=== PATIENT | female | born 1955 | race Caucasian/White ===

== ENCOUNTER → 2016-10-26 | Outpatient (CLI) | payer OTHER ==
[2016-06-03 11:35] VITALS: BP 122/67
[~2016-10-26] MED LIST: ANAS1TAB3 PO; ASPI81TA44 PO; ATOR20TA58 PO; CONTRAST GIVEN MC PRN; DOCU-27 PO; FLUT12AE2 IH; FURO-69 PO; IOHEXOL 300 MG/ML 100ML VIAL. IV ONE; ISOS30TA17 PO; LORA10CA PO; LORA10TA68 PO; METO25TA9 PO; MONT10TA9 PO; OXYB10TA PO; OXYB5TAB7 PO; PANT40TA5 PO; POTA20TA4 PO; SENN8.6T3 PO; TOPI100C5 PO; ZINC220T PO; ZINC50TA29 PO
--- NOTE | 2016-10-26 11:44 | KCIC ---
PROCEDURE Chest CT with intravenous contrast. HISTORY Breast cancer restaging. TECHNIQUE Computed tomographic images of the chest were obtained following the administration of 80 cc Omnipaque 300 intravenous contrast. One or more of the following individualized dose reduction techniques were utilized for this examination: 1. Automated exposure control; 2. Adjustment of the mA and/or kV according to patient size; 3. Use of iterative reconstruction technique. COMPARISON 06/25/2016 FINDINGS Evaluation for pulmonary nodules is limited due to significant respiratory motion. There is a 7 mm nodular opacity within the lateral left upper lobe. There is lower lobe predominant atelectasis. There is no infiltrate, effusion or pneumothorax. The heart is mildly enlarged. There are few calcified granulomas. No suspicious mediastinal or hilar lymph node is seen. There is a spiculated masslike density within the retroareolar left breast, likely due to primary malignancy or postoperative change. There is a suspicious enlarged lymph node within the left axilla measuring 1.4 cm. There are a few additional prominent lymph nodes. No hepatic lesion is seen, with evaluation limited due to the phase of contrast administration. The spleen is enlarged, measuring 13 cm. The adrenal glands and visualized portions of the pancreas and kidneys are unremarkable. There is a moderate chronic compression fracture of T3 with 5 mm retropulsion of the cortex into the central canal. This is likely a pathologic fracture given mixed lytic and sclerotic changes within this vertebral body. There is a lucent lesion within the left aspect of T5, also possibly a metastasis or hemangioma. IMPRESSION 1. Limited exam due to respiratory motion. 2. Stable 7 mm nodule within the left upper lobe, allowing for aforementioned study limitations. Given history primary malignancy, neoplasm is not excluded. Continued short-term followup is indicated. 3. Stable suspected pathologic compression fracture of T3, possibly due to osseous metastasis. There is also a lucent lesion within T5 which may be due to a metastasis or hemangioma. 4. Stable masslike density within the retroareolar left breast and suspicious left axillary lymphadenopathy, likely due to known primary malignancy. Correlate with mammography findings. Electronically signed by: Shanon Fishman (Oct 26, 2016 11:43:10)
== END | disposition home or self-care (01) ==
LOC: KCIC CT 08:57
PROVIDERS: ATTEND Internal Medicine Hematology & Oncology
DX: C50.912 Malignant neoplasm of unspecified site of left female breast (principal); M84.48XA Pathological fracture, other site, initial encounter for fracture; R59.0 Localized enlarged lymph nodes; J98.11 Atelectasis; I51.7 Cardiomegaly; R16.1 Splenomegaly, not elsewhere classified
CPT/HCPCS: 71260

== ENCOUNTER → 2016-10-27 | Outpatient (CLI) | payer OTHER ==
[2016-06-03 11:35] VITALS: BP 122/67
[~2016-10-27] MED LIST changes: -CONTRAST GIVEN MC PRN; -IOHEXOL 300 MG/ML 100ML VIAL. IV ONE
--- NOTE | 2016-10-27 11:35 | KCIC ---
EXAM: Bone densitometry. HISTORY: Postmenopausal female presents for osteoporosis screening. FINDINGS: BMD: (g/cm2) - AP Spine Total (L1-L4): 1.150 - Total left Hip: 0.907 T-Score: - AP Spine Total (L1-L4): 0.9 - Total left Hip: -0.3 Z-Score: - AP Spine Total (L1-L4): 2.4 - Total left Hip: 0.7 World Health Organization criteria for BMD interpretation classify patients as Normal (T-score at or above -1.0), Osteopenic (T-score between -1.0 and -2.5), or Osteoporotic (T-score at or below -2.5). IMPRESSION: Normal bone mineral density. Electronically signed by: Shanon Fishman (Oct 27, 2016 11:33:37)
== END | disposition home or self-care (01) ==
LOC: KCIC DEXA 09:10
PROVIDERS: ATTEND Internal Medicine Hematology & Oncology
DX: Z13.820 Encounter for screening for osteoporosis (principal); C50.912 Malignant neoplasm of unspecified site of left female breast; M85.88 Other specified disorders of bone density and structure, other site
CPT/HCPCS: 77080

== ENCOUNTER → 2016-12-14 | Outpatient (CLI) | payer OTHER ==
[2016-06-03 11:35] VITALS: BP 122/67
--- NOTE | 2016-12-14 15:28 | RAD ---
Metastatic skeletal survey, 12/14/2016: History: Breast cancer Multiple images of the bony skeleton were obtained and the following findings are delineated: 1. A PA view of the chest reveals no rib destruction. The lungs are clear. 2. A lateral view of the skull reveals no calvarial abnormality. The patient is edentulous. 3. AP and lateral views of the cervical, thoracic and lumbar spine demonstrate moderate scattered marginal spurs. The known pathologic appearing compression fracture at T4 was better demonstrated on recent CT studies. No additional spinal lesion is seen. 4. AP views of both humeri and forearms reveal no fracture or destructive bony lesion. 5. An AP view of the pelvis reveals no destructive lesion. There are mild degenerative changes at both hip joints. 6. AP views of both femurs and lower legs reveal no fracture or destructive bony lesion. There are degenerative changes at both knees. IMPRESSION: 1. Pathologic compression fracture at T4, better demonstrated on recent CT studies. 2. No other destructive bony lesion is seen. 3. Scattered degenerative changes as described above
== END | disposition home or self-care (01) ==
LOC: RAD 12:09
PROVIDERS: ATTEND Internal Medicine Hematology & Oncology
DX: C50.912 Malignant neoplasm of unspecified site of left female breast (principal); C79.51 Secondary malignant neoplasm of bone
CPT/HCPCS: 77075

== ENCOUNTER → 2016-12-17 | Outpatient (CLI) | payer OTHER ==
[2016-06-03 11:35] VITALS: BP 122/67
--- NOTE | 2016-12-17 14:46 | RAD ---
Indication breast cancer. Assess for potential skeletal metastatic disease. Whole body imaging was performed. 25 mCi of technetium labeled MDP was administered. Note is made of a previous examination 06/25/2016 Again seen is isolated increased uptake at T4, compatible with metastatic disease, although the intensity of the uptake is less than on the previous exam. No additional area suggesting skeletal metastatic disease is seen. Slightly increased uptake is noted involving the carpal bones of the left wrist which is likely degenerative. IMPRESSION: Isolated focus of increased uptake at T4 compatible with metastatic disease. The intensity of the uptake however is less than on the previous exam. No new areas suggestive of skeletal metastatic disease are seen
== END | disposition home or self-care (01) ==
LOC: NM 13:27
PROVIDERS: ATTEND Internal Medicine Hematology & Oncology
DX: C50.912 Malignant neoplasm of unspecified site of left female breast (principal); C79.51 Secondary malignant neoplasm of bone; R20.0 Anesthesia of skin; M54.5 Low back pain; Z87.442 Personal history of urinary calculi
CPT/HCPCS: 78306; 96374; A9503

== ENCOUNTER → 2017-08-12 | Outpatient (CLI) | payer OTHER ==
[2016-06-03 11:35] VITALS: BP 122/67
[~2017-08-12] MED LIST changes: +DOCU-109 PO; -DOCU-27 PO; +IOHEXOL 300 MG/ML 100ML VIAL. IV ONE; -ISOS30TA17 PO; +ISOS30TA19 PO; +METO-239 PO; -METO25TA9 PO; +SENN-79 PO; -SENN8.6T3 PO
--- NOTE | 2017-08-12 13:46 | RAD ---
CT chest with contrast 08/12/2017 Clinical indication: Breast carcinoma. Comparison: CT chest 10/26/2016 Technique: Multiple CT images of the chest were obtained following the intravenous menstruation of 75 mL Omnipaque 300. PQRS Compliance Statement: One or more of the following individualized dose reduction techniques were utilized for this examination: 1. Automated exposure control 2. Adjustment of the mA and/or kV according to patient size 3. Use of iterative reconstruction technique Findings: There is a spiculated nodule in the left breast measuring approximately 2.9 cm series 2/image 21. There is a stable mildly enlarged left axillary lymph node measuring 1.2 cm series 2/image 20, previously 1.2 cm. No mediastinal or hilar lymphadenopathy. he central airways are patent. No suspicious noncalcified pulmonary nodule. No pleural effusion or pneumothorax. Resolution of previously noted lateral left upper lobe nodule. Heart size is normal without significant pericardial effusion. The thoracic aorta is normal in caliber. There is a mixed sclerotic and lytic lesion throughout the T3 vertebral body with mild compression deformity and mild bony retropulsion. Limited images of the upper abdomen: Unremarkable. Impression: 1. Stable left retroareolar mass which may represent known malignancy or posttherapeutic changes. 2. Stable mildly enlarged left axillary lymph node, indeterminate and may represent dolores metastatic disease. 3. Resolution of left upper lobe pulmonary nodule. No new noncalcified pulmonary nodule. 4. Stable mixed lytic and sclerotic T3 lesion with bony retropulsion, likely pathologic.
== END | disposition home or self-care (01) ==
LOC: CT 11:56
PROVIDERS: ATTEND Internal Medicine Hematology & Oncology
DX: C50.912 Malignant neoplasm of unspecified site of left female breast (principal); J44.9 Chronic obstructive pulmonary disease, unspecified; I11.0 Hypertensive heart disease with heart failure; I50.9 Heart failure, unspecified; Z17.0 Estrogen receptor positive status [ER+]; Z87.891 Personal history of nicotine dependence
CPT/HCPCS: 71260; Q9967

== ENCOUNTER → 2018-02-11 | Outpatient (CLI) | payer OTHER ==
[2018-02-11] MEDS: IOHEXOL 240 MG/ML 50ML VIAL. PO (13:17)
[2018-02-11] MEDS: IOHEXOL 300 MG/ML 100ML VIAL. IV (13:18)
== END | disposition home or self-care (01) ==
LOC: CT 12:03
DX: C50.112 Malignant neoplasm of central portion of left female breast (principal); C79.81 Secondary malignant neoplasm of breast; I70.0 Atherosclerosis of aorta; I51.7 Cardiomegaly; J98.11 Atelectasis; Z17.0 Estrogen receptor positive status [ER+]
CPT/HCPCS: 71260; 74177; Q9966; Q9967

== ENCOUNTER → 2018-06-07 | Outpatient (CLI) | payer OTHER ==
[2016-06-03 11:35] VITALS: BP 122/67
[~2018-06-07] MED LIST changes: -ANAS1TAB3 PO; +ANAS1TAB47 PO; -ASPI81TA44 PO; +ASPI81TA59 PO; -IOHEXOL 300 MG/ML 100ML VIAL. IV ONE
--- NOTE | 2018-06-07 16:33 | RAD ---
Radionuclide bone scan, 06/07/2018: HISTORY: Breast cancer staging Whole-body imaging was performed following IV injection of 25 mCi of technetium 99m MDP. Comparison is made to a study from 12/17/2016. The following findings are delineated: 1. There is mildly increased activity in the thoracic spine similar to that seen on the previous study. Previous studies have described a known pathologic fracture in this region. 2. Increased activity at the shoulders, knees and feet is again compatible with arthritis. 3. Activity of the radionuclide about the skeleton and major joints is otherwise unremarkable. No new abnormality is detected. 4. Normal activity is present in both kidneys and the bladder. IMPRESSION: Stable radionuclide bone scan. Electronically signed by: Kumar Barone MD (06/07/2018 4:30 PM) [facility]
== END | disposition home or self-care (01) ==
LOC: NM 07:45
PROVIDERS: ATTEND Internal Medicine Hematology & Oncology
DX: C50.112 Malignant neoplasm of central portion of left female breast (principal); I11.0 Hypertensive heart disease with heart failure; I50.9 Heart failure, unspecified; Z79.899 Other long term (current) drug therapy
CPT/HCPCS: 78306; 96374; A9503

== ENCOUNTER → 2018-11-29 | Outpatient (CLI) | payer OTHER ==
[2016-06-03 11:35] VITALS: BP 122/67
[~2018-11-29] MED LIST changes: +CONTRAST GIVEN. MC PRN; +IOHEXOL 240 MG/ML 50ML VIAL. PO ONE; +IOHEXOL 300 MG/ML 100ML VIAL. IV ONE; -SENN-79 PO; +SENN-80 PO; -ZINC50TA29 PO; +ZINC50TA39 PO
--- NOTE | 2018-11-30 06:03 | RAD ---
CT CHEST ABD PELVIS W/CONTRAST dated 11/29/2018 3:27 PM Indication: Follow-up.BREAST CA
IV OMNI 300 75 MLS AND PO OMNI 240 50 MLS
PREVIOUS. Comparison: 02/11/2018 Technique: Contiguous axial imaging the chest abdomen pelvis performed following the intravenous administration of 75 cc Omnipaque 300. One or more of the following individualized dose reduction techniques were utilized for this examination: 1. Automated exposure control 2. Adjustment of the mA and/or kV according to patient size 3. Use of iterative reconstruction technique Findings: Central airways are patent. Small noncalcified pulmonary nodule in the left lower lobe on image 30 measures 6 mm, new from prior study. No additional pulmonary nodule or mass. No pleural effusion. Heart size mildly enlarged. Scattered coronary calcifications. No pericardial effusion. No mediastinal or hilar adenopathy. Thyroid gland unremarkable. Postsurgical changes of the left breast, similar to prior study. There is enlarged left axillary lymph node measures about 9 mm short axis, unchanged. A few additional nonpathologically enlarged lymph nodes in the left axilla. No right axillary adenopathy or supraclavicular lymphadenopathy. Liver is homogeneous in attenuation. No apparent hepatic mass. Biliary tree normal in caliber. Gallbladder unremarkable. Spleen is upper limits of normal in size. Pancreas, adrenal glands, gallbladder and kidneys are unremarkable. No hydronephrosis. Small cyst at the right kidney lower pole, unchanged. Partially opacified GI tract normal in caliber and contour. No focal bowel wall thickening. No inflammatory stranding in the mesentery. No ascites or lymphadenopathy. Abdominal aorta normal in caliber. Images of pelvis show nondistended urinary bladder. Uterus and adnexa are unremarkable. No free pelvic fluid or pelvic lymphadenopathy. Bone windows show no acute findings. Multilevel spondylosis. Deformity of the T3 vertebral body is unchanged from prior study, likely developmental. Multilevel spondylosis. Impression chest: 1. Postsurgical changes of the left breast, stable from prior exam. 2. Mild left axillary lymphadenopathy, also unchanged. 3. Small noncalcified pulmonary nodule in the left lower lobe, new from prior study. This is indeterminate and could be inflammatory or neoplastic. Suggest follow-up imaging in 3-6 months to ensure stability. 4. Coronary artery calcifications. Impression abdomen pelvis: 1. No evidence of metastatic disease or lymphadenopathy. Electronically signed by: Nemesio Hathaway MD (11/30/2018 6:00 AM) [facility]
== END | disposition home or self-care (01) ==
LOC: CT 13:37
PROVIDERS: ATTEND Internal Medicine Hematology & Oncology
DX: C50.919 Malignant neoplasm of unspecified site of unspecified female breast (principal); C79.51 Secondary malignant neoplasm of bone; I25.10 Atherosclerotic heart disease of native coronary artery without angina pectoris; M47.894 Other spondylosis, thoracic region; I11.9 Hypertensive heart disease without heart failure; R59.0 Localized enlarged lymph nodes; R91.1 Solitary pulmonary nodule; Z17.0 Estrogen receptor positive status [ER+]
CPT/HCPCS: 71260; 74177; Q9966; Q9967

== ENCOUNTER → 2019-06-07 | Outpatient (CLI) | payer MEDICAID ==
[2016-06-03 11:35] VITALS: BP 122/67
[~2019-06-07] MED LIST changes: +MONT10TA49 PO; -MONT10TA9 PO; -OXYB10TA PO; +OXYB10TA2 PO; -PANT40TA5 PO; +PANT40TA77 PO; -ZINC220T PO; +ZINC220T3 PO
--- NOTE | 2019-06-07 12:55 | RAD ---
CT CHEST ABD PELVIS W/CONTRAST Indication: Back pain, breast cancer Technique: Postcontrast CT imaging was performed of the chest, abdomen, pelvis, multiplanar reconstruction images submitted. Oral contrast was also given. One or more of the following individualized dose reduction techniques were utilized for this examination: 1. Automated exposure control 2. Adjustment of the mA and/or kV according to patient size 3. Use of iterative reconstruction technique. Comparison: November 29, 2018 CHEST: Findings: There is similar degree of architectural distortion and adjacent nodular spiculated density of the left breast. There is similar left axillary node about 1 cm short axis dimension. There is no pleural or pericardial effusion, pneumothorax, lobar consolidation. Major airways are patent. Previously seen left lower lobe pulmonary nodule is not well-visualized on this exam. There is again some calcified left hilar nodes. No new significant lymphadenopathy of the chest is identified. Thoracic aortic caliber is within normal limits without intraluminal flap. There is no abnormality of the thyroid gland. There is similar degree of compression deformity of T3 vertebral body, minimal osseous retropulsion inferiorly similar. Facet degenerative change contributes to neural foramina compromise greatest on the left at T8-9 and T9-10. There is also moderate to severe narrowing of the left T3-4 neural foramen. There is also degree of narrowing on the right at T1-T2, T5-T6, T8-T9, T9-10. IMPRESSION: 1. Findings are similar compared with November 29, 2018 exam. There is again pathologic compression deformity of T3 vertebral body, again minimal osseous retropulsion inferiorly. There is similar appearance of architectural distortion and spiculated density of the left breast, also similar sized left axillary node. Previously seen small left lower lobe pulmonary nodule is not not well-visualized on this exam. Abdomen pelvis FINDINGS: There is some motion. No new abnormality is identified of the spleen, liver, or atrophic appearing pancreas. Gallbladder is present without obvious intraluminal abnormality by CT. There is no adrenal nodularity. Both kidneys enhance, no hydronephrosis. There is again exophytic lesion of the posterior right kidney about 1.2 cm, density measurements about 22 Hounsfield units, size fairly similar. Bowel is not significantly dilated, greater degree of retained stool in the rectum and distal sigmoid colon, although other retained stool in the colon. Normal appendix is visualized. There is no free fluid or free air. There is multilevel lumbar facet degenerative change. There is multilevel thoracolumbar spondylosis. Lumbar vertebral body stature is overall preserved. No significant new significant lymphadenopathy is identified of the abdomen or pelvis. Facet degenerative change contributes to neural foramina compromise greatest on the left at L4-5 and L1-2. IMPRESSION: 1. There is no new CT evidence of metastatic disease to the abdomen or pelvis. 2. There is variable retained stool in the colon. 3. There is multilevel thoracolumbar neural foramina compromise in part from facet degenerative change. Electronically signed by: Buddy Martell MD (06/07/2019 12:52 PM) [facility]
== END | disposition home or self-care (01) ==
LOC: CT 10:25
PROVIDERS: ATTEND Internal Medicine Hematology & Oncology
DX: C50.919 Malignant neoplasm of unspecified site of unspecified female breast (principal); C79.51 Secondary malignant neoplasm of bone; R91.8 Other nonspecific abnormal finding of lung field; K56.41 Fecal impaction; M47.815 Spondylosis without myelopathy or radiculopathy, thoracolumbar region; M43.8X4 Other specified deforming dorsopathies, thoracic region; M48.04 Spinal stenosis, thoracic region; Z17.0 Estrogen receptor positive status [ER+]; Z88.8 Allergy status to other drugs, medicaments and biological substances
CPT/HCPCS: 71260; 74177; Q9966; Q9967

== ENCOUNTER → 2019-12-06 | Outpatient (CLI) | payer MEDICAID ==
[2016-06-03 11:35] VITALS: BP 122/67
[~2019-12-06] MED LIST changes: -OXYB10TA2 PO; +OXYB10TA26 PO; +OXYB5TAB10 PO; -OXYB5TAB7 PO
--- NOTE | 2019-12-06 15:19 | RAD ---
CT scan of the chest, abdomen and pelvis with contrast 12/06/2019 CLINICAL HISTORY: Breast cancer. TECHNIQUE: After the oral and intravenous administration of contrast, contiguous, 5 mm axial sections were obtained through the chest, abdomen and pelvis. 75 cc of Omnipaque 350 were administered intravenously during this examination. One or more of the following individualized dose reduction techniques were utilized for this study: 1. Automated exposure control. 2. Adjustment of the mA and/or kV according to patient size. 3. Use of iterative reconstruction technique. FINDINGS: Comparison study is dated 06/07/2019. Atherosclerotic calcification of the thoracic aorta and its branches is noted. The thoracic aorta is mildly tortuous but tapers normally. The heart is mildly enlarged. No hilar or mediastinal lymphadenopathy is noted. Postsurgical changes are seen involving the left breast. Skin thickening and scarring is again seen. These findings are unchanged. A 1.5 cm prominent lymph node is seen within the left axilla, unchanged. No pulmonary infiltrate, pleural effusion or pneumothorax is seen. No significant pulmonary nodule or mass is noted. The liver, spleen, pancreas, adrenal glands and left kidney are within normal limits. A 1.5 cm rounded low-attenuation lesion is seen inferiorly mid/lower pole the right kidney this likely represents a cyst. It is unchanged from the previous examination. No further imaging workup is recommended. Atherosclerotic calcification of the abdominal aorta is seen. The abdominal aorta tapers normally. The gallbladder is well-distended. No free fluid or free air is within the abdomen. Air and stool seen throughout colon. No retroperitoneal lymphadenopathy is seen. Images through the pelvis demonstrate the urinary bladder distended with urine. No pelvic or inguinal lymphadenopathy is seen. No free fluid is noted. No adnexal mass is seen. Very mild S-shaped curvature of the thoracolumbar spine is seen. Degenerative changes are seen involving lower thoracic and throughout the lumbar spine along with both hips. IMPRESSION: There is no CT evidence of metastatic disease involving the chest, abdomen or pelvis. Electronically signed by: Shayan Maciel MD (12/06/2019 3:16 PM) [facility] [place]
== END | disposition home or self-care (01) ==
LOC: CT 09:29
PROVIDERS: ATTEND Internal Medicine Hematology & Oncology
DX: C50.912 Malignant neoplasm of unspecified site of left female breast (principal); C79.51 Secondary malignant neoplasm of bone; I70.0 Atherosclerosis of aorta; I51.7 Cardiomegaly; N32.89 Other specified disorders of bladder; Z17.0 Estrogen receptor positive status [ER+]; M47.895 Other spondylosis, thoracolumbar region; M16.0 Bilateral primary osteoarthritis of hip
CPT/HCPCS: 71260; 74177; Q9966; Q9967

== ENCOUNTER 2021-03-22 13:03 | Emergency (ER) | payer MEDICAID ==
[~2021-03-22] VITALS: Ht 157.5 cm; Wt 85.0 kg
[~2021-03-22 13:03] MED LIST changes: -CONTRAST GIVEN. MC PRN; -IOHEXOL 240 MG/ML 50ML VIAL. PO ONE; -IOHEXOL 300 MG/ML 100ML VIAL. IV ONE; +SENN-182 PO; -SENN-80 PO
[2021-03-22 13:07] VITALS: BP 139/66
--- NOTE | 2021-03-22 13:25 | PHYS DOC ---
Past Medical History Past Medical History: GERD, High Cholesterol, Hypertension Additional Past Medical Histor: MR, LEFT BREAST CA WITH METS TO SPINE, COVID, Past Surgical History: Tubal ligation Smoking Status: Former Smoker Alcohol Use: Sober General Adult EDM: Chief Complaint: MECHANICAL FALL HPI: HPI: Patient is a 65 year old female who was brought here for evaluation after she fell in the kitchen at a long-term. Patient had mental retardation, she is tripped and fell hit the back of her head on the ground, no loss of consciousness. Patient has history of breast cancer that metastasized to her thoracic spine. Patient is complaining of headache, and back pain. Patient denies any extremity pain, denies any hip pain. She denies any nausea vomiting. Review of Systems: Review of Systems: Constitutional: Denies fever or chills. [] Eyes: Denies change in visual acuity. [] HENT: Denies nasal congestion or sore throat. [] Respiratory: Denies cough or shortness of breath. [] Cardiovascular: Denies chest pain or edema. [] GI: Denies abdominal pain, nausea, vomiting, bloody stools or diarrhea. [] : Denies dysuria. [] Musculoskeletal: Positive for back pain, no joint pain. Integument: Denies rash. [] Neurologic: Positive headache, no focal weakness or sensory changes. [] Endocrine: Denies polyuria or polydipsia. [] Lymphatic: Denies swollen glands. [] Psychiatric: Denies depression or anxiety. [] Heart Score: C/O Chest Pain: N/A Risk Factors: Risk Factors: DM, Current or recent (<one month) smoker, HTN, HLP, family history of CAD, obesity. Risk Scores: Score 0 - 3: 2.5% MACE over next 6 weeks - Discharge Home Score 4 - 6: 20.3% MACE over next 6 weeks - Admit for Clinical Observation Score 7 - 10: 72.7% MACE over next 6 weeks - Early Invasive Strategies Allergies: Allergies: Allergies Coded Allergies Type Severity Reaction Last Updated Verified No Known Medication Allergies Allergy Unknown 08/03/17 Yes ibuprofen Adverse Reaction Intermediate Nausea 06/03/16 Yes Physical Exam: PE: Constitutional: Well developed, well nourished, no acute distress, non-toxic appearance. [] HENT: Normocephalic, 3 cm laceration on the occipital area, bilateral external ears normal, oropharynx moist, no oral exudates, nose normal. [] Eyes: PERRLA, EOMI, conjunctiva normal, no discharge. [] Neck: Normal range of motion, no tenderness, supple, no stridor. [] Cardiovascular:Heart rate regular rhythm, no murmur [] Lungs & Thorax: Bilateral breath sounds clear to auscultation [] Abdomen: Bowel sounds normal, soft, no tenderness, no masses, no pulsatile masses. [] Skin: Warm, dry, no erythema, no rash. [] Back: No tenderness, no CVA tenderness. [] Extremities: No tenderness, no cyanosis, no clubbing, ROM intact, no edema. [] Neurologic: Alert and oriented X 3, normal motor function, normal sensory function, no focal deficits noted. [] Psychologic: Affect normal, judgement normal, mood normal. [] Current Patient Data: Vital Signs: Vital Signs Date Time Temp Pulse Resp B/P (MAP) Pulse Ox O2 Delivery O2 Flow Rate FiO2 03/22/21 13:07 99.6 58 16 139/66 (90) 98 Room Air 99.6 EKG: EKG: [] Radiology/Procedures: Radiology/Procedures: [][facility] [address] [place], [place] [id number] IMAGING REPORT Signed PATIENT: SELWYN GUO ACCOUNT: [id number] : 1955 LOCATION: ER AGE: 65 SEX: F EXAM STATUS: REG ER ORD. PHYSICIAN: DERECK ELKINS DO REASON: fell, lower back pain, hx of breast cancer that spreaded to spine PROCEDURE: CT LUMBAR SPINE WO CONTRAST Exam Date: 03/22/2021 1:[address] THORACIC SPINE WO, CT HEAD AND C-SPINE WO, CT LUMBAR SPINE WO Indication: Reason: fell, back pain, hx of breast cancer that met to spine / Spl. Instructions: / History: . One or more of the following dose reduction techniques were utilized: *Automated exposure control (AEC) *Adjustment of mA and/or kV according to patient size *Use of iterative reconstruction technique *CT scan done according to ALARA, or ALARA/IMAGE GENTLY COMPARISON: CTs from December 06, 2019 EXAMINATION: CT OF THE HEAD WITHOUT CONTRAST INDICATION: Trauma, head injury, headache; TECHNIQUE: Noncontrast helical axial CT images of the head were obtained. FINDINGS: Encephalomalacia in the left parietal lobe is seen with ex vacuo dilatation of the left lateral ventricle, and marked dilatation of the occipital horn. Porencephaly/schizencephaly is not excluded. Patchy ill-defined low attenuation areas in the subcortical and periventricular white matter bilaterally are consistent with microvascular disease. There is no evidence of acute intracranial hemorrhage, extra-axial collection, mass effect, midline shift, or acute territorial infarct. No lesion of the skull base or the calvarium is seen. The visualized paranasal sinuses, mastoid air cells, and orbits are normal in appearance. IMPRESSION: No evidence for acute intracranial abnormality. Encephalomalacia in the left parietal lobe noted with dilatation of the left lateral ventricle as described. Microvascular disease noted. EXAMINATION: CT OF THE CERVICAL SPINE WITHOUT CONTRAST Clinical Indication: Cervical spine pain after trauma Technique: Thin cut helical axial CT images through the cervical spine were obtained without contrast on a multi-detector CT scanner. Source data was then reconstructed into sagittal and coronal planes. Findings: Alignment is maintained without spondylolisthesis. Vertebral body heights are maintained without acute fracture. Moderate multilevel degenerative changes are noted. No significant prevertebral soft tissue swelling is demonstrated. No severe central canal stenosis is seen. Impression: No evidence of acute cervical spine fracture or subluxation. EXAMINATION: CT OF THE THORACIC SPINE WITH INTRAVENOUS CONTRAST CLINICAL INDICATION: Thoracic spine pain after trauma TECHNIQUE: CT thoracic spine was performed with intravenous contrast. FINDINGS: 1.5 cm sclerotic lesion in the T5 vertebral body is suspicious for a osseous metastasis or treated metastasis. Compression fracture of the T3 vertebral body is again seen with mixed sclerotic and lucent appearance. Underlying hemangioma or metastatic lesion at this level is not excluded, though the appearance is similar compared to the prior exam. No evidence of acute fracture or subluxation. Vertebral body heights are otherwise preserved. No high-grade osseous encroachment upon the central canal or neural foramina are demonstrated at any level. Mild to moderate multilevel degenerative changes are noted. Partially visualized heart appears enlarged. Impression: No CT evidence of acute thoracic spine fracture or subluxation. Chronic compression fracture at T3 is again seen with mixed sclerotic and lucent appearance. Underlying bone lesion or metastasis at this level is not excluded, though the appearance is similar compared to the prior exam from 2020. 1.5 cm sclerotic lesion in the T5 vertebral body is new since the prior exam and is suspicious for osseous metastasis or treated metastasis. Consider further evaluation with MRI with and without contrast and/or bone scan. EXAMINATION: CT OF THE LUMBAR SPINE WITH INTRAVENOUS CONTRAST CLINICAL INDICATION: Lumbar spine pain after trauma TECHNIQUE: CT lumbar spine was performed with intravenous contrast. FINDINGS: Continue with numbering nomenclature from the prior CTs, which number the thoracic spine compression fracture at T3, there is sacralization of the L5 vertebral body. Mixed sclerotic and lucent appearance of the L1 vertebral body appears more prominent compared to the prior exam. There are additional lucencies in the L3 vertebral body. These raise suspicion for osseous metastases. Vertebral bodies are well aligned. Vertebral body heights are maintained. Mild to moderate multilevel degenerative changes are noted. No evidence of acute fracture or subluxation. Impression: No evidence of acute fracture or subluxation of the lumbar spine. Multiple lucencies in the L3 vertebral body are new since the prior exam. Mixed sclerotic and lucent appearance of the L1 vertebral body appears more prominent compared to prior exam. These findings raise suspicion for osseous metastases. Consider further evaluation with MRI with and without contrast and/or bone scan. Electronically signed by: Mami Muir MD (03/22/2021 2:32 PM) [facility] DICTATED and SIGNED BY: MAMI MUIR MD DATE: 03/22/21 [id number] Laceration Procedure: Location: occipital area Anesthesia: 20 ml lidocaine 1% with epi total lenght of laceration:3 cm Number of kevon: 6 Suture Material: staple Technique: single interuptus. Patient tolerated procedure well. The wound was dressed with: gauze Course & Med Decision Making: Course & Med Decision Making Pertinent Labs and Imaging studies reviewed. (See chart for details) [] Dragon Disclaimer: Dragon Disclaimer: This electronic medical record was generated, in whole or in part, using a voice recognition dictation system. Departure Departure Impression: Primary Impression: Occipital scalp laceration Disposition: 01 HOME / SELF CARE / HOMELESS Condition: STABLE Referrals: CARLENE KENNEDY MD (PCP) Follow up with your doctor in 7 days for kevon removal. Patient Instructions: Head Injury, Adult, Laceration Care, Adult, VIS, Tetanus, Diphtheria, and Pertussis (Tdap) - CDC Additional Instructions: Thank you for visiting our Emergency Department. We appreciate you trusting us with your care. If any additional problems come up don't hesitate to return to visit us. Please follow up with your primary care provider so they can plan additional care if needed and know about the problem that you had. If symptoms worsen come back to the Emergency Department. Any concerning symptoms that start such as chest pain, shortness of air, weakness or numbness on one side of the body, running high fevers or any other concerning symptoms return to the ER. DERECK ELKINS DO Mar 22, 2021 13:25
[2021-03-22] MEDS ORDERED: LIDOCAINE 1%/EPI 1:100,000 20 ML VIAL. INJ ONE (13:45)
[2021-03-22] MEDS ORDERED: DIPH,PERTUSS(ACELL),TET VAC/PF 0.5 ML SYRINGE. VAX IM ONE (13:45)
--- NOTE | 2021-03-22 14:35 | RAD ---
Exam Date: 03/22/2021 1:[address] THORACIC SPINE WO, CT HEAD AND C-SPINE WO, CT LUMBAR SPINE WO Indication: Reason: fell, back pain, hx of breast cancer that met to spine / Spl. Instructions: / Hi story: . One or more of the following dose reduction techniques were utilized: *Automated exposure control (AEC) *Adjustment of mA and/or kV according to patient size *Use of iterative reconstruction technique *CT scan done according to ALARA, or ALARA/IMAGE GENTLY COMPARISON: CTs from December 06, 2019 EXAMINATION: CT OF THE HEAD WITHOUT CONTRAST INDICATION: Trauma, head injury, headache; TECHNIQUE: Noncontrast helical axial CT images of the head were obtained. FINDINGS: Encephalomalacia in the left parietal lobe is seen with ex vacuo dilatation of the left lateral ventr icle, and marked dilatation of the occipital horn. Porencephaly/schizencephaly is not excluded. Patchy ill-defined low attenuation areas in the subcortical and periventricular white matter bilatera lly are consistent with microvascular disease. There is no evidence of acute intracranial hemorrhag e, extra-axial collection, mass effect, midline shift, or acute territorial infarct. No lesion of the skull base or the calvarium is seen. The visualized paranasal sinuses, mastoid air cells, and orbits are normal in appearance. IMPRESSION: No evidence for acute intracranial abnormality. Encephalomalacia in the left parietal lobe noted with dilatation of the left lateral ventricle as birdie cribed. Microvascular disease noted. EXAMINATION: CT OF THE CERVICAL SPINE WITHOUT CONTRAST Clinical Indication: Cervical spine pain after trauma Technique: Thin cut helical axial CT images through the cervical spine were obtained without contrast on a multi-detector CT scanner. Source data was then reconstructed into sagittal and coronal planes. Findings: Alignment is maintained without spondylolisthesis. Vertebral body heights are maintained without acute fracture. Moderate multilevel degenerative change s are noted. No significant prevertebral soft tissue swelling is demonstrated. No severe central lis l stenosis is seen. Impression: No evidence of acute cervical spine fracture or subluxation. EXAMINATION: CT OF THE THORACIC SPINE WITH INTRAVENOUS CONTRAST CLINICAL INDICATION: Thoracic spine pain after trauma TECHNIQUE: CT thoracic spine was performed with intravenous contrast. FINDINGS: 1.5 cm sclerotic lesion in the T5 vertebral body is suspicious for a osseous metastasis or treated me tastasis. Compression fracture of the T3 vertebral body is again seen with mixed sclerotic and lucent appearance. Underlying hemangioma or metastatic lesion at this level is not excluded, though the gale earance is similar compared to the prior exam. No evidence of acute fracture or subluxation. Vertebral body heights are otherwise preserved. No high -grade osseous encroachment upon the central canal or neural foramina are demonstrated at any level. Mild to moderate multilevel degenerative changes are noted. Partially visualized heart appears enlarg ed. Impression: No CT evidence of acute thoracic spine fracture or subluxation. Chronic compression fracture at T3 is again seen with mixed sclerotic and lucent appearance. Underlyi ng bone lesion or metastasis at this level is not excluded, though the appearance is similar compared to the prior exam from 2019. 1.5 cm sclerotic lesion in the T5 vertebral body is new since the prior exam and is suspicious for os seous metastasis or treated metastasis. Consider further evaluation with MRI with and without contras t and/or bone scan. EXAMINATION: CT OF THE LUMBAR SPINE WITH INTRAVENOUS CONTRAST CLINICAL INDICATION: Lumbar spine pain after trauma TECHNIQUE: CT lumbar spine was performed with intravenous contrast. FINDINGS: Continue with numbering nomenclature from the prior CTs, which number the thoracic spine compression fracture at T3, there is sacralization of the L5 vertebral body. Mixed sclerotic and lucent appearanc e of the L1 vertebral body appears more prominent compared to the prior exam. There are additional catrachita cencies in the L3 vertebral body. These raise suspicion for osseous metastases. Vertebral bodies are well aligned. Vertebral body heights are maintained. Mild to moderate multilevel degenerative changes are noted. No evidence of acute fracture or subluxation. Impression: No evidence of acute fracture or subluxation of the lumbar spine. Multiple lucencies in the L3 vertebral body are new since the prior exam. Mixed sclerotic and lucent appearance of the L1 vertebral body appears more prominent compared to prior exam. These findings gramajo se suspicion for osseous metastases. Consider further evaluation with MRI with and without contrast a nd/or bone scan. Electronically signed by: Octavio Muir MD (03/22/2021 2:32 PM) [facility]
== END 2021-03-22 16:42 | disposition home or self-care (01) ==
LOC: ER 13:03
DX: S01.01XA Laceration without foreign body of scalp, initial encounter (principal); M54.5 Low back pain; M54.6 Pain in thoracic spine; M54.2 Cervicalgia; K21.9 Gastro-esophageal reflux disease without esophagitis; E78.00 Pure hypercholesterolemia, unspecified; I10 Essential (primary) hypertension; Z98.51 Tubal ligation status; Z87.891 Personal history of nicotine dependence; Z88.8 Allergy status to other drugs, medicaments and biological substances; W01.198A Fall on same level from slipping, tripping and stumbling with subsequent striking against other object, initial encounter; Y93.89 Activity, other specified; Y92.090 Kitchen in other non-institutional residence as the place of occurrence of the external cause; Y99.8 Other external cause status
CPT/HCPCS: 12002; 70450; 72125; 72128; 72131; 90471; 90715; 99285; J3490

== ENCOUNTER 2021-04-01 10:21 | Emergency (ER) | payer MEDICAID ==
[~2021-04-01] VITALS: Ht 157.5 cm; Wt 88.1 kg
[2021-04-01 10:44] VITALS: BP 143/59
--- NOTE | 2021-04-01 10:46 | PHYS DOC ---
Past Medical History Past Medical History: GERD, High Cholesterol, Hypertension Additional Past Medical Histor: MR, LEFT BREAST CA WITH METS TO SPINE, COVID, (JAYDEN BETANCOURT APPRAISAL SPECIALIST) Past Surgical History: Tubal ligation (JAYDEN BETANCOURT APPRAISAL SPECIALIST) Smoking Status: Former Smoker Alcohol Use: Sober (JAYDEN BETANCOURT APPRAISAL SPECIALIST) General Adult EDM: Chief Complaint: SUTURE/STAPLE REMOVAL HPI: HPI: Patient is a 65 year old female who presents with was here March 22 when she got a laceration to the back of her head. She is here to have the kevon removed. Patient denies any pain or signs of infection. She is here with her caregiver. Patient denies any dizziness or headache or nausea or vomiting. She is a history of hypertension, tubal ligation, left breast cancer with mets to spine, Covid, MR, high cholesterol. She denies any pain. (JAYDEN BETANCOURT APPRAISAL SPECIALIST) Review of Systems: Review of Systems: Constitutional: Denies fever or chills. [] Eyes: Denies change in visual acuity. [] HENT: Denies nasal congestion or sore throat. [] Respiratory: Denies cough or shortness of breath. [] Cardiovascular: Denies chest pain or edema. [] GI: Denies abdominal pain, nausea, vomiting, bloody stools or diarrhea. [] : Denies dysuria. [] Musculoskeletal: Denies back pain or joint pain. [] Integument: Denies rash. + Suture removal from laceration back of head [] Neurologic: Denies headache, focal weakness or sensory changes. [] Endocrine: Denies polyuria or polydipsia. [] Lymphatic: Denies swollen glands. [] Psychiatric: Denies depression or anxiety. [] (JAYDEN BETANCOURT APPRAISAL SPECIALIST) Heart Score: C/O Chest Pain: No Risk Factors: Risk Factors: DM, Current or recent (<one month) smoker, HTN, HLP, family history of CAD, obesity. Risk Scores: Score 0 - 3: 2.5% MACE over next 6 weeks - Discharge Home Score 4 - 6: 20.3% MACE over next 6 weeks - Admit for Clinical Observation Score 7 - 10: 72.7% MACE over next 6 weeks - Early Invasive Strategies (JAYDEN BETANCOURT APPRAISAL SPECIALIST) Allergies: Allergies: Allergies Coded Allergies Type Severity Reaction Last Updated Verified No Known Medication Allergies Allergy Unknown 08/03/17 Yes ibuprofen Adverse Reaction Intermediate Nausea 06/03/16 Yes (JAYDEN BETANCOURT APRN) Physical Exam: PE: Constitutional: Well developed, well nourished, no acute distress, non-toxic appearance. [] HENT: Normocephalic, atraumatic, bilateral external ears normal, oropharynx moist, no oral exudates, nose normal. [] Eyes: PERRLA, EOMI, conjunctiva normal, no discharge. [] Neck: Normal range of motion, no tenderness, supple, no stridor. [] Cardiovascular:Heart rate regular rhythm, no murmur [] Lungs & Thorax: Bilateral breath sounds clear to auscultation [] Abdomen: Bowel sounds normal, soft, no tenderness, no masses, no pulsatile masses. [] Skin: Warm, dry, no erythema, no rash. Healed laceration to the back of the head with kevon in place [] Back: No tenderness, no CVA tenderness. [] Extremities: No tenderness, no cyanosis, no clubbing, ROM intact, no edema. [] Neurologic: Alert and oriented X 3, normal motor function, normal sensory function, no focal deficits noted. [] Psychologic: Affect normal, judgement normal, mood normal. [] (JAYDEN BETANCOURT APRN) EKG: EKG: [] (JAYDEN BETANCOURT APRN) Radiology/Procedures: Radiology/Procedures: [] (JAYDEN BETANCOURT APRN) Course & Med Decision Making: Course & Med Decision Making Pertinent Labs and Imaging studies reviewed. (See chart for details) See HPI. Alert and oriented x4. Skin pink warm and dry. Speaks in full clear sentences. Can walk but she is also in a wheelchair. 6 sutures removed from a very well-healed and approximated laceration. No drainage or signs of infection. No tenderness to the area. Patient tolerated well. (JAYDEN BETANCOURT APRN) Course & Med Decision Making I oversaw on the above date of service of this patient. This patient was evaluated, examined, treated, and dispositioned from the emergency department by the mid-level practitioner. Although I was working at the time and available for consultation, no assistance was requested and I did not see or immediately direct the care of this patient. I reviewed note and agree to findings, plan of care, and disposition as stated. Electronically signed, [place] Farrell DO ([place]AN[place] FARRELL DO) Darvin Disclaimer: Darvin Disclaimer: This electronic medical record was generated, in whole or in part, using a voice recognition dictation system. (JAYDEN BETANCOURT APRN) Departure Departure Impression: Primary Impression: Removal of staple Disposition: 01 HOME / SELF CARE / HOMELESS Condition: STABLE Referrals: CARLENE KENNEDY MD (PCP) Patient Instructions: Staple Removal, Care After Additional Instructions: Follow-up with primary care provider if needed. Take any Tylenol for any kind of pain. You can put Neosporin over the area. JAYDEN BETANCOURT APRN Apr 01, 2021 10:46 [place] FARRELL DO Apr 01, 2021 17:13
== END 2021-04-01 10:50 | disposition home or self-care (01) ==
LOC: ER 10:21
DX: S01.01XD Laceration without foreign body of scalp, subsequent encounter (principal); K21.9 Gastro-esophageal reflux disease without esophagitis; E78.00 Pure hypercholesterolemia, unspecified; I10 Essential (primary) hypertension; Z87.891 Personal history of nicotine dependence; Z88.8 Allergy status to other drugs, medicaments and biological substances; X58.XXXD Exposure to other specified factors, subsequent encounter
CPT/HCPCS: 99282